=== PATIENT | male | born 1970 | race Caucasian/White ===

== ENCOUNTER 2020-12-18 07:32 | Inpatient (IN) | payer OTHER ==
[~2020-12-18] VITALS: Ht 188 cm; Wt 87.0 kg
[2020-12-18 08:14] LABS: BASOPHILS ABSOLUTE AUTO 0.04 K/mm3 (0.00-0.23); BASOPHILS PERCENT AUTO 1 % (0-2); EOSINOPHILS ABSOLUTE AUTO 0.02 K/mm3 (0.00-0.68); EOSINOPHILS PERCENT AUTO 1 % (0-6); Hemoglobin 15.2 g/dL (13.5-17.5); IMMATURE GRAN ABSOLUTE AUTO 0.01 K/mm3 (0.00-0.10); IMMATURE GRAN PERCENT AUTO 0 % (0-1); LYMPHOCYTES ABSOLUTE AUTO 1.16 K/mm3 (0.84-5.20); LYMPHOCYTES PERCENT AUTO 31 % (21-46); MONOCYTES ABSOLUTE AUTO 0.37 K/mm3 (0.16-1.47); MONOCYTES PERCENT AUTO 10 % (4-13); Mean Corpuscular HGB 30.2 pg (26.0-34.0); Mean Corpuscular HGB Conc 33.8 g/dL (31.5-36.5); Mean Corpuscular Volume 89 fL (80-100); Mean Platelet Volume 9.2 fL (9.1-12.4); NEUTROPHILS ABSOLUTE AUTO 2.14 K/mm3 (1.96-9.15); NEUTROPHILS PERCENT AUTO 57 % (41-73); Platelet Count 249 K/mm3 (150-400); RDW Coefficient Variation 13.4 % (11.7-14.2); RDW Standard Deviation 43.9 fL (35.1-46.3); Red Blood Cell Count 5.04 M/mm3 (4.30-5.90); White Blood Cell Count 3.74 K/mm3 (4.00-11.30)
[2020-12-18 08:27] LABS: Alanine Aminotransfer (ALT/SGP 87 U/L (12-78); Albumin, Blood 3.5 g/dL (3.4-5.0); Alk Phos 59 U/L (50-136); Anion Gap 3 mmol/L (6-16); Aspartate Aminotrans (AST/SGOT 49 U/L (12-37); Blood Urea Nitrogen 21 mg/dL (8-24); Bun/Creatinine Ratio 23.9 (12.0-20.0); CO2, Blood 31 mmol/L (21-32); Calcium, Blood 9.4 mg/dL (8.5-10.1); Chloride, Blood 103 mmol/L (98-108); Creatinine, Blood 0.88 mg/dL (0.60-1.20); Ethanol (Alcohol), Blood, Med <3 mg/dL; Globulin, Blood 3.4 g/dL (2.2-4.0); Glomerular Filtration Rate >60 (60-); Glucose, Blood 212 mg/dL (70-99); Potassium, Blood 4.1 mmol/L (3.5-5.5); Sodium, Blood 137 mmol/L (136-145); Total Protein, Blood 6.9 g/dL (6.4-8.2)
[2020-12-18 15:05] LABS: Glucose, Blood 512 mg/dL (70-99)
--- NOTE | 2020-12-18 15:30 | NUR ---
Transfer from ER Pt to ICU 16 via ED bed. Pt able to transfer to ICU bed by standing up and walking. States [place] in [place], [place], incorrect year/date, unable to state where in [place] pt is. Having auditory and visual hallucations. Patient calling out to his dog often and speaking to daughter, no family in room. Pulling at lines/IV and attempting to get out of bed. States "I want to go home." Explained importance of staying at hospital. Unable to be reoriented. Precedex GTT infusing via right IV, see flow sheet. HEENA Bailey called to update on patient CBG (> 500) and recieved orders per emar. Placed pt on SWB but pt pulling hands out of them and attempting to get out of bed often along with pulling at IV's, changed to TWB. CIWA 26. Call light within reach. VSS. SIT.
[2020-12-18 16:04] LABS: U Amphetamine Screen Not Detected; U Barbituate Screen Not Detected; U Benzodiazapine Screen DETECTED; U Buprenorphine Screen Not Detected; U Cannabinoids Screen Not Detected; U Cocaine Screen Not Detected; U Methadone Screen Not Detected; U Methamphetamine Screen Not Detected; U Opiates Screen Not Detected; U Oxycodone Screen Not Detected; U Phencyclidine Screen Not Detected; U Propoxyphene Screen Not Detected
--- NOTE | 2020-12-18 18:36 | NUR ---
Shift Summary Precedex 0.2 mcg/kg/hr to SB. Pt becomes hypotensive (MAP 50's) when Precedex titrated up. HEENA Bailey called and updated on this occurring. Pt sternal rubbed to be awakened. Once pt awake, very agitated, attempting to get out of bed, pulling on lines/tubes. CIWA 24. Having visual, auditory, and tactile hallucination. Seeing dog and daughter in room along with dog touching pts arm, treated per emar. Recieved orders to start 1 L bolus for hypotension. HR 70'S, SPO2 90%. Will continue to monitor.
--- NOTE | 2020-12-18 19:21 | NUR ---
HYPOTENSION IMPROVED Pt awake, able to use urinal. Precedex remains on SB. MAP 69, SBP 114/71. Bedside report given to Santos Ruiz.
--- NOTE | 2020-12-18 21:31 | NUR ---
SHIFT ASSESSMENT ASSUMED CARE OF PT @ 1900. REPORT RECEIVED FROM LAURA KEITH. PT ALERT, SITTING UPRIGHT IN BED DURING BEDSIDE REPORT. ATTEMPTING TO GET OUT OF BED, WISHING TO FIND HIS DOG. PT CALLING TO HIS DOG AT THE [facility]ORWAY. WHEN ASKED WHERE HE IS, PT STATES [place], AND YEAR IS 2019. THIS NURSE REMINDED PT OF THE REASON HE WAS HERE, PT AGREED WITH STAYING IN THE ICU SO HE CAN KICK THE ETOH. EVEN AFTER REDIRECTION, PT CONTINUES TO ATTEMPT TO GET OUT OF BED, PULLING AT CORDS AND LINES. MEDICATED c PRN ATIVAN DUE TO CIWA >15, PRECEDEX TITRATED TO SB DUE TO HYPOTENSION. WILL MEDICATED WITH LIBRIUM WHEN PT MORE ALERT.
--- NOTE | 2020-12-19 01:01 | NUR ---
UPDATE PT GRADUALLY BECOMING MORE AGITATED AND CONFUSED. PULLING AT RESTRAINTS, ATTEMPTING TO GET OUT OF BED. NOT REDIRECTABLE. MEDICATED WITH MULTIPLE DOSES OF ATIVAN WITH LITTLE RESPONSE. PRECEDEX TITRATED. HOSPITALIST NOTIFIED, ORDERS FOR PRN PHENOBARBITAL, SEEMS TO WORK BETTER FOR PT.
[2020-12-19 03:17] LABS: BASOPHILS ABSOLUTE AUTO 0.02 K/mm3 (0.00-0.23); BASOPHILS PERCENT AUTO 1 % (0-2); EOSINOPHILS ABSOLUTE AUTO 0.02 K/mm3 (0.00-0.68); EOSINOPHILS PERCENT AUTO 1 % (0-6); Hematocrit 35.9 % (37.0-53.0); IMMATURE GRAN PERCENT AUTO 0 % (0-1); LYMPHOCYTES ABSOLUTE AUTO 1.05 K/mm3 (0.84-5.20); LYMPHOCYTES PERCENT AUTO 26 % (21-46); MONOCYTES ABSOLUTE AUTO 0.33 K/mm3 (0.16-1.47); MONOCYTES PERCENT AUTO 8 % (4-13); Mean Corpuscular HGB 30.3 pg (26.0-34.0); Mean Corpuscular HGB Conc 33.4 g/dL (31.5-36.5); Mean Corpuscular Volume 91 fL (80-100); Mean Platelet Volume 9.5 fL (9.1-12.4); NEUTROPHILS ABSOLUTE AUTO 2.66 K/mm3 (1.96-9.15); NEUTROPHILS PERCENT AUTO 65 % (41-73); Platelet Count 152 K/mm3 (150-400); RDW Coefficient Variation 13.2 % (11.7-14.2); Red Blood Cell Count 3.96 M/mm3 (4.30-5.90); White Blood Cell Count 4.08 K/mm3 (4.00-11.30)
[2020-12-19 03:38] LABS: Alanine Aminotransfer (ALT/SGP 75 U/L (12-78); Albumin, Blood 2.8 g/dL (3.4-5.0); Albumin/Globulin Ratio 1.1 (0.8-1.8); Alk Phos 45 U/L (50-136); Anion Gap 7 mmol/L (6-16); Aspartate Aminotrans (AST/SGOT 44 U/L (12-37); Bilirubin, Total 0.8 mg/dL (0.1-1.0); Blood Urea Nitrogen 18 mg/dL (8-24); Bun/Creatinine Ratio 24.6 (12.0-20.0); CO2, Blood 25 mmol/L (21-32); Calcium, Blood 7.8 mg/dL (8.5-10.1); Chloride, Blood 108 mmol/L (98-108); Creatinine, Blood 0.73 mg/dL (0.60-1.20); Globulin, Blood 2.6 g/dL (2.2-4.0); Glomerular Filtration Rate >60 (60-); Glucose, Blood 224 mg/dL (70-99); Magnesium, Blood 2.1 mg/dL (1.6-2.4); Potassium, Blood 3.6 mmol/L (3.5-5.5); Sodium, Blood 140 mmol/L (136-145); Total Protein, Blood 5.4 g/dL (6.4-8.2)
--- NOTE | 2020-12-19 06:34 | NUR ---
SHIFT SUMMARY PT REMAINS INTUBATED, SEDATED, AND PARALYZED. PROPOFOL GTT REMAINS @ 40MCG/KG/MIN. NIMBEX TITRATED DOWN TO 0.5MCG/KG/MIN c TOF 2/4. VENT SETTINGS: AC/VC-28/400/75%/ PEEP-15 c O2 SATS >95%. PT REMAINS PRONE, TOLERATING SIDE TO SIDE TURNS. TEMP CHASE CATH DRAINING DARK YELLOW URINE, MINIMAL OUTPUT THIS SHIFT. NO OTHER ACUTE CHANGES THIS SHIFT. REPORT TO ONCOMING NURSE.
--- NOTE | 2020-12-19 06:44 | NUR ---
SHIFT SUMMARY PT REMAINS ALERT TO PERSON, REMAINS CONFUSED TO PLACE AND TIME. AFTER PHENOBARBITAL ADMINISTRATION, PT ABLE TO SLEEP/ RELAX FOR A COUPLE HOURS. PRECEDEX GTT REMAINS @ 0.2MCG/KG/HR. PT WOKE UP AROUND 0600, VERY AGITATED, ATTEMPTING TO GET OUT OF BED. PULLING AT LINES AND CORDS, HARD TO REDIRECT. NOT AGGRESSIVE TOWARDS STAFF, BUT DETERMINED TO LEAVE. HALLUCINATING, REACHING FOR HIS DOG. CIWA SCORE >20, MEDICATED c PRN PHENOBARBITAL WHICH QUICKLY CALMED PT. ASSISTED PT c URINAL, QUICKLY TO SLEEP. REPORT TO ONCOMING NURSE.
--- NOTE | 2020-12-19 07:27 | NUR ---
Receieved report from Santos RN. Patient sleeping at report time and very drowsy on assesment. Reported visual and auditory hallucinations. He is on RA and sats 96%. He has bilateral 20ga FA IV's, flushed left and SL's and RFA infusing NS at 150 ml/hr, and Precedex at 0.2 mcg/kg/hr. SERVIN. VSS, See EMR. He is in bilateral UE TAT r/t pulling at lines and trying to climb out of bed and does not orient very quickly. Medicating per MAR for withdrawls and anxiety.
--- NOTE | 2020-12-19 08:30 | NUR ---
Patient un-prone and is 8.0 ET and RT readjusted ET from 24 back to 26 cm at lips, settings of VC 24/400/15/75 and sats low 90%'s. Restarted TF vital High Protein at 20 ml/hr and adminisitered am meds. Oral care aned cath care done with positioning. His BIS was mid to high 60 and increased nimbex to 1 mcg/kg/min. He has PowerGlide in ARCELIA infusing Propofol at 40 mcg/kg/min, LLFA 20 ga infusing NS TKO. RLFA 20 ga infusing nimbex at 1 mcg/kg/min. Changed linen when unproning patient.
--- NOTE | 2020-12-19 09:27 | NUR ---
Increased Nimbex to 1.5 mcg/kg/min and BIS came down to 50's from 60's. No other changes with vent or gtt's
--- NOTE | 2020-12-19 09:52 | NUR ---
Patient awake pulling at lines and restraints. He tolerated PO meds with sips of water. He is un able to follow conversation more than a few words. He remains on RA and sats upper 90%'s. Dr AMADOR'leroy Precedex.
--- NOTE | 2020-12-19 12:23 | NUR ---
Patient remains awake, and confused. Set him up for lunch and removed restraints to allow him to eat. He accidently pulled IV from RFA and moved fluyids to LFA. After lunch gave Valium to help with rest and confusion. VSS, See EMR. CIWA still high.
--- NOTE | 2020-12-19 13:44 | NUR ---
Gave Valium 10 mg without any affect. He has chewed through 2nd IV and had to change linen and bedding as bed was saturated.. Bed layed in trendelenberg and he continues to sit up pulling at restraints. He is confused at times where he is and tremors have decreased. He remains on Ra and sats >90%. VSS, See EMR. Called and talked with Dr Plaza and received one dose of Phenibarbital 130 mg.
--- NOTE | 2020-12-19 16:13 | NUR ---
Patient pulling at attendsand putting piueces in mouth, incontinent to urine and does not vcall when needing to urinate. Still has word salad when doing direct care. VSS, See EMR. He remains on RA and sats >90%. SERVIN and strong. Intermitent hallucinations. Tremors remain down.Banana bag running and have concealed IV as he is not eating it. he is tolerating sips of water without difficulty.
--- NOTE | 2020-12-19 18:44 | NUR ---
Patient has been very anxious. Added Precedex after 130 mg Phenobarbital did nothing and started at .5 mcg/kg/hr and has been working well without any hypotension affects as yesterday. Placed condom cath as he was incontinent several times and playing with attends. VSS, See EMR. He awakens easily and falls quickly back to sleep. Banana bag continues at 100 ml/hr. He remains on RA and sats >90%.
--- NOTE | 2020-12-19 19:30 | NUR ---
report received from daphnie ramos. care assumed- pt on precedex infusing @ 0.5 mck/kg/hr, bananna bag @ 10 ml/hr. pt resting, wakes to touch and voice. continue assessment and care.
--- NOTE | 2020-12-20 00:29 | NUR ---
assess NO CHANGES. WHEN PT AWAKE-PULLS AT BREIFS AND IV LINE. PT CONFUSED BUT AWARE OF SELF. PT TALKS ABOUT RANDOM THINGS BUT IS POLITE. RELEASE RESTRAINTS WHILE IN ROOM. PT CONTINUES TO ATTEMPT TO REMOVE PIV. CONTINUE RESTRAINTS FOR PT SAFETY AT THIS TIME.
--- NOTE | 2020-12-20 01:16 | NUR ---
ASSESS ATTEMPT TO REMOVE 2 RESTRAINTS TO TURN PT, PT BECAME VERY AGGITATED- 4+ STAFF REQUIRED TO REPLACE RESTRAINTS. PT ATTEMPTING TO GET OOB & PULL OUT PIV. PT CONFUSED TO WHERE HE IS AND SITUATION. PLACED PT BACK IN RESTRAINTS, REDIRECTED PT OVER AND OVER, TURN OFF TV, TURN DOWN LIGHTS. PT BEGAN TO RELAX. CONTINUE ASSESSMENT AND CARE.
--- NOTE | 2020-12-20 04:07 | NUR ---
ASSESS PT REMAINS ON PRECEDEX GTT, RATE CURRENTLY @ 0.7MCK/KG/HR. PT SLEEPING, WAKES TO VOICE. WHEN WOKEN-PT ANSWERS [id number] EASILY BECOMES AGGITATED AND WANTS TO GET OOB, ASKING FOR HIS VAPE AND PANTS. SIPS OF WATER OFFERED AND PT ABLE TO SWALLOW WITHOUT ISSUES. BS REMAIN UNCHANGED-CLEAR. PT REMAINS IN 4 POINT RESTRAINTS-CHECKED Q2 HOURS-GOOD PULSES ALL EXTREMITIES. CONTINUE ASSESSMENTS AND CARE.
--- NOTE | 2020-12-20 10:30 | NUR ---
Care Assumed 0700 Pt on precedex GTT, see flow sheet. Pt unable to state location but states correct year. Having visual and audiotry hallucations, talking to daughter and dog, no one present in room. States having a headache. Attempting to get out of bed. Remains in four point restraints, CIWA 20. Dr. Plaza in to see patient and recieved orders to restart patients NS @ 150 ml/hr. VSS.
[2020-12-20 10:39] LABS: BASOPHILS ABSOLUTE AUTO 0.01 K/mm3 (0.00-0.23); BASOPHILS PERCENT AUTO 0 % (0-2); EOSINOPHILS ABSOLUTE AUTO 0.06 K/mm3 (0.00-0.68); EOSINOPHILS PERCENT AUTO 1 % (0-6); Hematocrit 45.6 % (37.0-53.0); Hemoglobin 14.9 g/dL (13.5-17.5); IMMATURE GRAN ABSOLUTE AUTO 0.01 K/mm3 (0.00-0.10); IMMATURE GRAN PERCENT AUTO 0 % (0-1); LYMPHOCYTES PERCENT AUTO 22 % (21-46); MONOCYTES PERCENT AUTO 9 % (4-13); Mean Corpuscular HGB Conc 32.7 g/dL (31.5-36.5); Mean Corpuscular Volume 92 fL (80-100); Mean Platelet Volume 9.8 fL (9.1-12.4); NEUTROPHILS ABSOLUTE AUTO 2.99 K/mm3 (1.96-9.15); NEUTROPHILS PERCENT AUTO 67 % (41-73); Platelet Count 168 K/mm3 (150-400); RDW Coefficient Variation 13.2 % (11.7-14.2); RDW Standard Deviation 44.2 fL (35.1-46.3); Red Blood Cell Count 4.97 M/mm3 (4.30-5.90); White Blood Cell Count 4.47 K/mm3 (4.00-11.30)
[2020-12-20 10:49] LABS: Anion Gap 11 mmol/L (6-16); Blood Urea Nitrogen 8 mg/dL (8-24); Bun/Creatinine Ratio 11.4 (12.0-20.0); CO2, Blood 21 mmol/L (21-32); Calcium, Blood 8.6 mg/dL (8.5-10.1); Chloride, Blood 106 mmol/L (98-108); Glomerular Filtration Rate >60 (60-); Glucose, Blood 200 mg/dL (70-99); Potassium, Blood 4.2 mmol/L (3.5-5.5); Sodium, Blood 138 mmol/L (136-145)
--- NOTE | 2020-12-20 13:13 | NUR ---
Update - Pulling removed condom cath Pt removed condom cath, attempting to get out of bed and ripped attends, attempting to eat attends. Pt asked if he is hungry, offered food and water. Pt states, "I'm not hungry." Charge nurse Brittany at bedside to place another IV in pt for medications. Pt tolerating well. Two CNAs in to help clean patient, new attends and pants provided. Spoke to Katarina from [facility] and updated on pt status.
--- NOTE | 2020-12-20 14:11 | NUR ---
IV PULLED BY PT Pt pulled left wrist IV. Educated on importance of not pulling lines. Pt also ripped pants. Tuff Cuffs remain in place x 4. LAURA Eng attempting to place powerglide. Two IVs attempted prior without success.
--- NOTE | 2020-12-20 16:46 | NUR ---
Provider Call Dr. Plaza called in regards to changing patients IV Thamine to PO. Pt has either pulled out IV or infilated due to bending arms in multiple directions. DANIELA IV found to be infilated, non-leaking, non-tender, and skin blanced 2 inches. Also, phenobarbital DC's per provider. Would like Precedex titrated down for possible discharge on Wednesday. VSS.
--- NOTE | 2020-12-20 18:46 | NUR ---
Shift Summary Precedex placed on SB for one hour while patient ate dinner. Two PILL MAKER's at bedside, tuff cuff break provided. Two PILL MAKER's remained at bedside for one hour to assist patient in eating. 90% of dinner compelted along with two sugarfree protein shakes. Pt becomes easily agitated and fixated on IV's and condom cath. Attempting to pull at lines and walk out of bed. Educated on importance of condom cath and need for IV's. Precedex restarted, see flow sheet. CIWA 20-18. Continue to have visual and auditory hallucations. VSS. Call light within reach. Will report to oncoming shift.
--- NOTE | 2020-12-20 20:00 | NUR ---
ASSUMED CARE OF PT AT 1915. REPORT RECEIVED. PT PRESENTS IN BED. HAD BEEN ABLE TO SOMEHOW GET OUT OF LEFT WRIST RESTRAINTS. HAS PULLED AT ATTENDS AND WAS TRYING TO DISLODGE CONDOM CATHETER. RESTRAINT REPLACED AND SECURED. PT RATHER PLEASANT AND CONFUSED. IS NOT AWARE THAT HE IS IN THE HOSPITAL. EXPLAINED TO PT WHY HE IS HERE, AND WHERE HE IS AT THIS TIME. WILL REVIEW CHART AND PLAN OF CARE FOR THIS PT.
--- NOTE | 2020-12-20 22:00 | NUR ---
CALL MADE TO RESIDENT - DR HARDIN. PT HAS NOW ORDER FOR LIBRIUM. PT WAS ABLE TO TAKE 25 MG DOSE WITHOUT ISSUES. HAS BEEN INCONTINENT TO STOOL. HAS MADE MULTIPLE ATTEMPTS TO GET OUT OF BED AND TO PULL AT CATHETER AND IV LINE. PT CLEANED AND CHANGED. TEACHING OF ETOH WITHDRAWALS AND PLAN OF CARE TO HELP THIS GENTLEMAN THROUGH THIS PROCESS.
--- NOTE | 2020-12-20 23:47 | NUR ---
PT WAS ABLE TO GET HIS HAND TO HIS CONDOM CAHTETER WHERE HE PULLED IT OFF AND URINATED THE BED. FULL BEDCHANGE DONE. PT REMAINS CONFUSED. DOES REDIRECT SOME.
[2020-12-21 03:45] LABS: BASOPHILS ABSOLUTE AUTO 0.02 K/mm3 (0.00-0.23); BASOPHILS PERCENT AUTO 0 % (0-2); EOSINOPHILS ABSOLUTE AUTO 0.08 K/mm3 (0.00-0.68); EOSINOPHILS PERCENT AUTO 2 % (0-6); Hematocrit 43.6 % (37.0-53.0); Hemoglobin 14.9 g/dL (13.5-17.5); IMMATURE GRAN ABSOLUTE AUTO 0.01 K/mm3 (0.00-0.10); IMMATURE GRAN PERCENT AUTO 0 % (0-1); LYMPHOCYTES ABSOLUTE AUTO 0.84 K/mm3 (0.84-5.20); LYMPHOCYTES PERCENT AUTO 17 % (21-46); MONOCYTES ABSOLUTE AUTO 0.42 K/mm3 (0.16-1.47); MONOCYTES PERCENT AUTO 8 % (4-13); Mean Corpuscular HGB Conc 34.2 g/dL (31.5-36.5); Mean Corpuscular Volume 88 fL (80-100); Mean Platelet Volume 9.2 fL (9.1-12.4); NEUTROPHILS ABSOLUTE AUTO 3.62 K/mm3 (1.96-9.15); NEUTROPHILS PERCENT AUTO 73 % (41-73); Platelet Count 194 K/mm3 (150-400); RDW Coefficient Variation 13.2 % (11.7-14.2); RDW Standard Deviation 42.2 fL (35.1-46.3); Red Blood Cell Count 4.96 M/mm3 (4.30-5.90); White Blood Cell Count 4.99 K/mm3 (4.00-11.30)
[2020-12-21 04:04] LABS: Alanine Aminotransfer (ALT/SGP 73 U/L (12-78); Albumin, Blood 3.1 g/dL (3.4-5.0); Albumin/Globulin Ratio 0.9 (0.8-1.8); Alk Phos 67 U/L (50-136); Anion Gap 8 mmol/L (6-16); Aspartate Aminotrans (AST/SGOT 27 U/L (12-37); Bilirubin, Total 0.6 mg/dL (0.1-1.0); Blood Urea Nitrogen 12 mg/dL (8-24); Bun/Creatinine Ratio 13.1 (12.0-20.0); CO2, Blood 24 mmol/L (21-32); Calcium, Blood 8.5 mg/dL (8.5-10.1); Chloride, Blood 106 mmol/L (98-108); Creatinine, Blood 0.92 mg/dL (0.60-1.20); Globulin, Blood 3.5 g/dL (2.2-4.0); Glomerular Filtration Rate >60 (60-); Glucose, Blood 160 mg/dL (70-99); Potassium, Blood 4.1 mmol/L (3.5-5.5); Sodium, Blood 138 mmol/L (136-145); Total Protein, Blood 6.6 g/dL (6.4-8.2)
--- NOTE | 2020-12-21 06:30 | NUR ---
PT HAS BEEN MEDICATED SEVERAL TIMES WITH LIBRIUM FOR W/D'S SOME GOOD AFFECT. PT CONTINUES ON PRECEDEX DRIP AT 0.7 MCG'S. REMAINS WITH AUDITORY AND VISUAL HALUCINATIONS. HAS NOT ATTEMPTED TO INJEST ANY MEDICAL EQUIPTMENT OR ATTENDS. HAS TRIED TO MAKE PHONE CALLS ON THROUGH HIS BED RAILING. MOSTLY, PT HAS REMAINED PLEASANT. WILL CONTINUE MONITOR PT, AND WILL REPORT OFF TO ONCOMING RN.
--- NOTE | 2020-12-21 08:30 | NUR ---
UPDATE PHYSICIAN AT BEDSIDE, ORDERS TO D/C RESTRAINTS AND BEGIN TITRATING PT'S PRECIDEX.
--- NOTE | 2020-12-21 11:01 | NUR ---
CAMERA ON PT ON CAMERA FOR PT SAFETY. BED ALARM IN PLACE. PT CONT TO BE REDIRECTED TO NOT PULL AT TUBING.PT ABLE TO BE REDIRECTED.
--- NOTE | 2020-12-21 13:10 | NUR ---
PRECEDEX GTT STOPPED AT THIS TIME. PT TOLERATING WELL. CIWA STABLE.
--- NOTE | 2020-12-21 18:02 | NUR ---
SHIFT SUMMARY/PT TRANFER PT ALERT TO SELF AND REASON FOR ADMITTANCE TO HOSPITAL. UNSURE OF TIME, YEAR AND LOCATION. CIWA STABLE. PRECEDEX GTT STOPPED THIS AFTERNOON, NOTES AND FLOW SHEET. PT PULLING AT LINES AT TIMES. ABLE TO REDIRECT. PT ON CAMERA FOR SAFETY. CONSULT FOR PSYCH, FACE SHEET SENT TO ED. PT INCONTINENT AT TIMES. DEPENDS IN PLACE. HR STABLE. BP STABLE. NO CP OR PRESSURE. PT MEDICATED FOR CIWA, SEE EMAR. PT UP IN CHAIR, 2 PERSON ASSIST. PT TO BE TRANSPORTED TO PCU 08 WITH ALL BELONGINGS AFTER REPORT GIVEN TO PCU,RN.
--- NOTE | 2020-12-21 18:48 | NUR ---
Assumed care of this pt as he transferred from ICU. He is a/o to himslef but otherwise confused and is hallucinating. He is very impulsive and unsteady on his feet. He does follow directions and is re-directable but this only lasts for a short time before he is off to try and get up or transfer to a different position. He was assisted to his new room and was able to use a urinal on the side of bed. He is now sitting in the recliner with a tab alarm on and he is visible on the camera. He has his call light in reach but will need frequent rounding. Will report to shift commander nurse.
[2020-12-22 04:27] LABS: BASOPHILS ABSOLUTE AUTO 0.02 K/mm3 (0.00-0.23); BASOPHILS PERCENT AUTO 0 % (0-2); EOSINOPHILS ABSOLUTE AUTO 0.08 K/mm3 (0.00-0.68); EOSINOPHILS PERCENT AUTO 1 % (0-6); Hematocrit 41.7 % (37.0-53.0); Hemoglobin 14.3 g/dL (13.5-17.5); IMMATURE GRAN ABSOLUTE AUTO 0.02 K/mm3 (0.00-0.10); IMMATURE GRAN PERCENT AUTO 0 % (0-1); LYMPHOCYTES ABSOLUTE AUTO 1.14 K/mm3 (0.84-5.20); LYMPHOCYTES PERCENT AUTO 19 % (21-46); MONOCYTES ABSOLUTE AUTO 0.56 K/mm3 (0.16-1.47); MONOCYTES PERCENT AUTO 9 % (4-13); Mean Corpuscular HGB 29.7 pg (26.0-34.0); Mean Corpuscular HGB Conc 34.3 g/dL (31.5-36.5); Mean Corpuscular Volume 87 fL (80-100); Mean Platelet Volume 9.8 fL (9.1-12.4); NEUTROPHILS ABSOLUTE AUTO 4.33 K/mm3 (1.96-9.15); NEUTROPHILS PERCENT AUTO 71 % (41-73); Platelet Count 210 K/mm3 (150-400); RDW Coefficient Variation 13.2 % (11.7-14.2); RDW Standard Deviation 41.7 fL (35.1-46.3); Red Blood Cell Count 4.81 M/mm3 (4.30-5.90); White Blood Cell Count 6.15 K/mm3 (4.00-11.30)
[2020-12-22 04:48] LABS: Alanine Aminotransfer (ALT/SGP 67 U/L (12-78); Albumin, Blood 3.4 g/dL (3.4-5.0); Alk Phos 69 U/L (50-136); Anion Gap 13 mmol/L (6-16); Aspartate Aminotrans (AST/SGOT 17 U/L (12-37); Bilirubin, Total 0.6 mg/dL (0.1-1.0); Blood Urea Nitrogen 13 mg/dL (8-24); Bun/Creatinine Ratio 14.8 (12.0-20.0); CO2, Blood 21 mmol/L (21-32); Calcium, Blood 8.7 mg/dL (8.5-10.1); Chloride, Blood 100 mmol/L (98-108); Creatinine, Blood 0.88 mg/dL (0.60-1.20); Globulin, Blood 3.5 g/dL (2.2-4.0); Glomerular Filtration Rate >60 (60-); Glucose, Blood 301 mg/dL (70-99); Potassium, Blood 3.8 mmol/L (3.5-5.5); Sodium, Blood 134 mmol/L (136-145); Total Protein, Blood 6.9 g/dL (6.4-8.2)
--- NOTE | 2020-12-22 06:22 | NUR ---
SUMMARY PT HAS NOT BEEN ABLE TO SLEEP TONIGHT, HIGH CIWA SCORE 19 NOTED X2, PT HAS BEEN MEDICATED WITH PO LIBRIUM 50 MG & 5 MG IV VALIUM X2 PER EMAR, PT HAS CONINTUED TO BE RESTLESS, GETTING IN & OUT OF BED MULTIPLE TIMES, DISORIENTED TO DAY, AND CONTINUES TO REPORT MILD HALLUCINATIONS. PT HAS BEEN PLEASANT & MOSTLY COOPERATIVE WITH CARE BUT HE WILL GO THROUGH DIFFERENT EMOTIONS QUICKLY DURING THE CONVERSATION. PT HAS EXPRESSED FEELINGS OF SADNESS REGARDING THE OF HIS & "FEELING LIKE HE FAILED" HIS SON. PT RELATES THESE REASONS TO HIS DRINKING PROBLEM. EDUCATION, EMOTIONAL SUPPORT & REDIRECTION OFFERED FREQUENTLY & PRN. PT IS ON THE SECURITY CAMERA, BED ALARM IS ON FOR SAFETY BUT THE PT HAS FIGURED OUT HOW TO TURN IT OFF. WIRE PREPARATION MACHINE TENDER WAS NOTIFIED OF THIS SO THAT THEY CAN REPORT MOVEMENT QUICKLY. A ONE TIME ORDER FOR 2MG IV ATIVAN WAS ORDERED EARLIER IN THE NIGHT. THIS WAS HELD IN ATTEMPT TO SEE IF CURRENT CIWA MEDICATION ORDERS WERE SUFFICIENT. PT IS CURRENT CIWA AT THIS TIME IS 14. BED ALARM IS ON, FREQUENT ROUNDING PROVIDED.
--- NOTE | 2020-12-22 07:59 | NUR ---
UPDATE PHYSICIAN NOTIFIED OF PT'S HIGH CBG. ORDERS PROVIDED. 30 UNITS OF NPH TO BE GIVEN. SEE EMAR.
--- NOTE | 2020-12-22 17:52 | NUR ---
SHIFT SUMMARY PT ALERT TO SELF. AWARE OF GOING THROUGH ETOH W/D BUT CONFUSED ON LOCATION AND YEAR. PT HALLUCINATING AT TIMES WITH VISUAL AND AUDITORY HALLUCINATIONS. CIWA SCORE AT 16. MEDICATED, SEE EMAR. BED ALARM AND CAMERA ON FOR SAFETY. HR STABLE. BP STABLE. NO CP OR PRESSURE. REPORTS TO FEEL SOB D/T ANXIETY. ONCE MEDICATED FOR WITHDRAWL PT REPORTS RELIEF. OXYGEN SATURATION MAINTAINED ABOVE 95% ON RA. PT SBA NEEDED. WILL CONT TO MONITOR UNTIL REPORT GIVEN TO NIGHTSHIFT RN.
--- NOTE | 2020-12-23 04:49 | NUR ---
SHIFT SUMMARY PATIENT IS ALERT AND ORIENTED X2, SELF AND FOLLOWING DIRECTIONS. PATIENT IS CONFUSED HAVING VISUAL AND AUDITORY HALLUCINATIONS AND SAYS THINGS THAT DO NOT MAKE SENSE. EASILY REDIRECTABLE. CIWA RANGING FROM 12-8, MEDICATED PER EMAR. 02 SATS 99% ON RA. 1 PERSON ASSIST TO THE BATHROOM. BED ALARM ON AND PT ON CAMERA. PT NEEDS CONSTANT REORIENTATION AND REDIRECTED TO STAY IN BED OR USE HIS CALL LIGHT. VSS, NO ACUTE CHANGES. CALL LIGHT IN REACH.
[2020-12-23] MEDS ORDERED: Buspirone HCl15 MG PO (10:09)
[2020-12-23] MEDS ORDERED: IBUP800 PO (10:09)
[2020-12-23] MEDS ORDERED: ALBU90OI INH (10:10)
[2020-12-23] MEDS ORDERED: DULOXETINE HCL30 M1 PO (10:10)
[2020-12-23] MEDS ORDERED: ADMELOG SO100 UNIT/2 SC (10:11)
[2020-12-23] MEDS ORDERED: BASAGLAR K100 UNIT/1 SC (10:12)
[2020-12-23] MEDS ORDERED: ZOLP10 PO (10:13)
[2020-12-23] MEDS ORDERED: Requip Xl2 MG PO (10:20)
[2020-12-23] MEDS ORDERED: PRAZ2 PO (10:20)
[2020-12-23] MEDS ORDERED: GABA300 PO (10:20)
[2020-12-23] MEDS ORDERED: CYCL10 PO (10:21)
--- NOTE | 2020-12-23 17:42 | NUR ---
SHIFT SUMMARY PT HAS BEEN ALERT & APPROPRIATE T/O SHIFT, BUT IS IMPULSIVE TO GET OOB WHEN WANTING TO USE BATHROOM OR MOVE. DR JONES IN ROOM CURRENTLY. ORIENTED x 2 T/O SHIFT. BLOOD SUGARS TRENDING DOWN. HTN @ X'S.
[2020-12-24 08:46] LABS: Anion Gap 6 mmol/L (6-16); Blood Urea Nitrogen 11 mg/dL (8-24); Bun/Creatinine Ratio 12.7 (12.0-20.0); CO2, Blood 28 mmol/L (21-32); Calcium, Blood 8.9 mg/dL (8.5-10.1); Chloride, Blood 102 mmol/L (98-108); Creatinine, Blood 0.87 mg/dL (0.60-1.20); Glomerular Filtration Rate >60 (60-); Glucose, Blood 374 mg/dL (70-99); Potassium, Blood 3.8 mmol/L (3.5-5.5); Sodium, Blood 136 mmol/L (136-145)
--- NOTE | 2020-12-24 10:18 | NUR ---
PT PHYSICALLY IMPULSIVE AND CONTINUOUSLY GETS OUT OF BED, TRIGGERING BED ALARM; PT AOX2; CAMERA ON FOR PT SAFETY; PT WOBBLY WHEN AMBULATING WITH CANE; PT REORIENTABLE BUT PRESENTS WITH SHORT TERM MEMORY DEFICITS AND REQUIRES FREQUENT VERBAL REINFORCEMENT OF EDUCATION; TRANSFER ORDERS IN; REPORT GIVEN TO LAURA URBAN VIA PHONE AT 0838; PT VERBALIZES NO ADDITIONAL CONCERNS AT THIS TIME; PT TRANSFERRED TO ROOM 347 VIA WHEELCHAIR AT 0843 WITH NO TELEMETRY MONITORING, OXYGEN THERAPY, OR IV INFUSIONS AND TECH ACCOMPANYING PT
[2020-12-24] MEDS ORDERED: NICO21TP TOP (12:59)
[2020-12-24] MEDS ORDERED: B-1100 M1 PO (13:00)
--- NOTE | 2020-12-24 15:56 | NUR ---
Discharge Summary Patient transferred from PCU 8. Received report from Stephanie SANCHEZ. Arrived via w/c and self transferred to bed. Pleasant and cooperative. A/Ox2 to self and place, forgetful. Sets bed alarm off, but has been using call light for needs too. Reviewed discharge paperwork with patient, no questions at this time. Meds faxed to [facility]. Copy of d/c papers given. [facility] personnel picked up patient to transport. PG removed, WNL. Refused to be escorted via w/c. Had Marielena bring a cane for patient to take with him for personal use. Patient escorted by NURSING ASSOCIATE by ambulation with cane.
== END 2020-12-24 15:34 | disposition home or self-care (01) | DRG 897 ==
LOC: ER 07:32 → ICUW 11:28 → PCU 11:28 → ICUW 13:27 → PCU 12-21 18:53 → MEDS 12-24 08:49
PROVIDERS: Emergency Medicine; Family Medicine; Nurse Practitioner Acute Care; ADMIT Internal Medicine
DX: F10.231 Alcohol dependence with withdrawal delirium (principal); F32.3 Major depressive disorder, single episode, severe with psychotic features; R45.851 Suicidal ideations; E11.9 Type 2 diabetes mellitus without complications; F43.12 Post-traumatic stress disorder, chronic; I10 Essential (primary) hypertension; Z98.890 Other specified postprocedural states; F17.290 Nicotine dependence, other tobacco product, uncomplicated
CPT/HCPCS: 36415; 80048; 80053; 82947; 83036; 83690; 83735; 85025; 93005; 93010; 96374; 97116; 97162; 97165; 97535; 99285-25; A9270; C1751; G0480; J1200; J1630; J1650; J1815; J2060; J2560; J3360; J3411; J3475; J7030; J7042